=== PATIENT | male | born 1965 | race Caucasian/White ===

== ENCOUNTER 2021-12-24 19:55 | Emergency (ER) | payer SELFPAY ==
[2021-12-24 20:03] VITALS: RESP 16
--- NOTE | 2021-12-24 20:14 | ED ---
General Adult HPI - General Chief complaint: Dizziness Stated complaint: Hypertension Time Seen by Provider: 12/24/21 20:08 Source: patient, EMS Mode of arrival: EMS Limitations: no limitations - History of Present Illness Initial comments: Patient presents to the ED by ambulance for evaluation. Patient states that he has had intermittent episodes of dizziness for the past 2 days. Patient states that his dizziness has become worse today. Patient states that it feels like things are spinning at times. Patient states that his dizziness is worse with changes in position, turning his head from [id number] and ambulating. Patient denies having any medical conditions, but he also admits that he has not seen a physician in a long time. Patient denies having any pain, fever or chills, headache, focal numbness/weakness/neuro deficit, visual changes, speech difficulty, chest pain or pressure, dyspnea, cough or cold symptoms, palpitations, syncope, abdominal pain, nausea/vomiting/diarrhea, bloody or melanotic stool, dysuria or urinary symptoms, leg or calf swelling or pain, or any other symptoms or complaints. Patient states that he does not feel dizzy currently while laying still. - Related Data Previous Rx's Medication Instructions Recorded Meclizine HCl 25 mg PO TID PRN #10 tablet 12/24/21 Allergies Allergy/AdvReac Type Severity Reaction Status Date / Time No Known Allergies Allergy Verified 12/24/21 20:04 Review of Systems ROS Statement: Those systems with pertinent positive or pertinent negative responses have been documented in the HPI. ROS Other: All systems not noted in ROS Statement are negative. Past Medical History Past Medical History: No Reported History History of Any Multi-Drug Resistant Organisms: None Reported Past Surgical History: No Surgical Hx Reported Past Psychological History: No Psychological Hx Reported Smoking Status: Current every day smoker Past Alcohol Use History: None Reported Past Drug Use History: None Reported General Exam Limitations: no limitations General appearance: alert, in no apparent distress Head exam: Present: atraumatic, normocephalic Eye exam: Present: normal appearance, PERRL, EOMI. Absent: nystagmus ENT exam: Present: mucous membranes moist, TM's normal bilaterally Neck exam: Present: other (Trachea is in midline) Respiratory exam: Present: normal lung sounds bilaterally. Absent: respiratory distress, wheezes, rales, rhonchi, stridor Cardiovascular Exam: Present: regular rate, normal rhythm, normal heart sounds, other (Normal radial pulses bilaterally) GI/Abdominal exam: Present: soft. Absent: distended, tenderness, guarding Extremities exam: Absent: tenderness, pedal edema, calf tenderness Neurological exam: Present: alert, oriented X3, CN II-XII intact. Absent: motor sensory deficit Psychiatric exam: Present: normal affect, normal mood Skin exam: Present: warm, dry, intact, normal color Course Vital Signs 12/24/21 12/24/21 12/24/21 20:00 20:49 21:33 Temperature 98.5 F Pulse Rate 77 68 80 Respiratory 16 16 16 Rate Blood Pressure 162/132 190/110 156/90 O2 Sat by Pulse 95 98 98 Oximetry - Reevaluation(s) Reevaluation #1: 12/24/21 23:23 Patient's blood pressure has now improved to 156/90. Patient states that his dizziness has also improved, and patient has been ambulatory in the ED without difficulty. Patient and brother are aware the patient's test results, and patient feels comfortable being discharged home at this time. In particular, the patient was made aware of his CT finding of an old lacunar infarct. Patient was counseled about elevated blood pressure and dizziness/vertigo. Patient was instructed to, and agrees to, establish care and follow up closely with a primary care provider. Patient was clearly explained return and follow-up instructions, and he feels comfortable this plan. EKG Findings - EKG Comments: EKG Findings:: Normal sinus rhythm, ventricular rate of 72 bpm, no ectopy, normal CT and QRS intervals, normal QT interval, normal axis, no ST or T-wave abnormality Medical Decision Making - Medical Decision Making Patient's blood pressure has improved while in the ED, as has his dizziness. Patient's head CT shows no definite acute abnormality, but does demonstrate an old lacunar infarct. Patient's EKG and labs are fairly unremarkable other than leukocytosis, which I suspect is likely reactive, as the patient is afebrile and has no infectious signs/symptoms. Patient reports that his dizziness is worse with changes in position and when turning his head from [id number]. I suspect that his dizziness is likely due to positional vertigo. Patient reports that he does not have a primary care provider and he has not seen a doctor in a long time. Given his elevated blood pressure readings, I have explained to him that it is possible that he has underlying hypertension, and I have advised that he establish care with a primary care provider and follow up closely with him/her. Patient agrees to do so. Will discharge patient home with his brother at this time. Patient feels comfortable with this plan. - Lab Data Result diagrams: 12/24/21 20:26 12/24/21 20:26 Lab Results 12/24/21 12/24/21 12/24/21 Range/Units 20:26 20:26 20:26 WBC 18.4 H (3.8-10.6) k/uL RBC 5.20 (4.30-5.90) m/uL Hgb 16.3 (13.0-17.5) gm/dL Hct 46.9 (39.0-53.0) % MCV 90.3 (80.0-100.0) fL MCH 31.4 (25.0-35.0) pg MCHC 34.7 (31.0-37.0) g/dL RDW 12.3 (11.5-15.5) % Plt Count 357 (150-450) k/uL MPV 7.7 Neutrophils % 79 % Lymphocytes % 13 % Monocytes % 5 % Eosinophils % 3 % Basophils % 0 % Neutrophils # 14.4 H (1.3-7.7) k/uL Lymphocytes # 2.4 (1.0-4.8) k/uL Monocytes # 0.9 (0-1.0) k/uL Eosinophils # 0.5 (0-0.7) k/uL Basophils # 0.1 (0-0.2) k/uL Sodium 137 (137-145) mmol/L Potassium 4.4 (3.5-5.1) mmol/L Chloride 104 (98-107) mmol/L Carbon Dioxide 18 L (22-30) mmol/L Anion Gap 15 mmol/L BUN 18 (9-20) mg/dL Creatinine 0.84 (0.66-1.25) mg/dL Est GFR (CKD-EPI)AfAm >90 (>60 ml/min/1.73 sqM) Est GFR (CKD-EPI)NonAf >90 (>60 ml/min/1.73 sqM) Glucose 101 H (74-99) mg/dL Calcium 9.8 (8.4-10.2) mg/dL Total Bilirubin 0.4 (0.2-1.3) mg/dL AST 32 (17-59) U/L ALT 34 (4-49) U/L Alkaline Phosphatase 83 (38-126) U/L Troponin I <0.012 (0.000-0.034) ng/mL Total Protein 7.8 (6.3-8.2) g/dL Albumin 4.8 (3.5-5.0) g/dL Urine Color Urine Appearance (Clear) Urine pH (5.0-8.0) Ur Specific Stokes (1.001-1.035) Urine Protein (Negative) Urine Glucose (UA) (Negative) Urine Ketones (Negative) Urine Blood (Negative) Urine Nitrite (Negative) Urine Bilirubin (Negative) Urine Urobilinogen (<2.0) mg/dL Ur Leukocyte Esterase (Negative) 12/24/21 Range/Units 21:45 WBC (3.8-10.6) k/uL RBC (4.30-5.90) m/uL Hgb (13.0-17.5) gm/dL Hct (39.0-53.0) % MCV (80.0-100.0) fL MCH (25.0-35.0) pg MCHC (31.0-37.0) g/dL RDW (11.5-15.5) % Plt Count (150-450) k/uL MPV Neutrophils % % Lymphocytes % % Monocytes % % Eosinophils % % Basophils % % Neutrophils # (1.3-7.7) k/uL Lymphocytes # (1.0-4.8) k/uL Monocytes # (0-1.0) k/uL Eosinophils # (0-0.7) k/uL Basophils # (0-0.2) k/uL Sodium (137-145) mmol/L Potassium (3.5-5.1) mmol/L Chloride (98-107) mmol/L Carbon Dioxide (22-30) mmol/L Anion Gap mmol/L BUN (9-20) mg/dL Creatinine (0.66-1.25) mg/dL Est GFR (CKD-EPI)AfAm (>60 ml/min/1.73 sqM) Est GFR (CKD-EPI)NonAf (>60 ml/min/1.73 sqM) Glucose (74-99) mg/dL Calcium (8.4-10.2) mg/dL Total Bilirubin (0.2-1.3) mg/dL AST (17-59) U/L ALT (4-49) U/L Alkaline Phosphatase (38-126) U/L Troponin I (0.000-0.034) ng/mL Total Protein (6.3-8.2) g/dL Albumin (3.5-5.0) g/dL Urine Color Colorless Urine Appearance Clear (Clear) Urine pH 6.0 (5.0-8.0) Ur Specific Stokes 1.008 (1.001-1.035) Urine Protein Negative (Negative) Urine Glucose (UA) Negative (Negative) Urine Ketones Negative (Negative) Urine Blood Negative (Negative) Urine Nitrite Negative (Negative) Urine Bilirubin Negative (Negative) Urine Urobilinogen <2.0 (<2.0) mg/dL Ur Leukocyte Esterase Negative (Negative) - Radiology Data Noncontrast head CT: Lacunar infarct left internal capsule. This is likely old. No definite acute intracranial abnormality. Disposition Clinical Impression: Dizziness, Elevated blood pressure reading Disposition: HOME SELF-CARE Condition: Stable Instructions (If sedation given, give patient instructions): Vertigo (ED), Hypertension (ED), Dizziness (ED) Additional Instructions: Return to the ER immediately should you develop increased dizziness, fainting, numbness or weakness, any significant pain, a significant headache, chest pain, shortness of breath, vomiting, or new or worsening symptoms. Follow up closely with a primary care provider. Prescriptions: Meclizine HCl 25 mg PO TID PRN #10 tablet PRN Reason: Vertigo Is patient prescribed a controlled substance at d/c from ED?: No Referrals: None,Stated [Primary Care Provider] - 1-2 days Macario Vines DO [Doctor of Osteopathic Medicine] - 1-2 days Time of Disposition: 23:23
[2021-12-24] MEDS ORDERED: MECLIZINE 12.5 MG TAB PO STA (20:28)
[2021-12-24] MEDS ORDERED: LORazepam 2 MG/ML INJ IV STA (20:28)
[2021-12-24 20:52] LABS: Basophils # (A) 0.1 k/uL (0-0.2); Basophils % (A) 0 %; Eosinophils # (A) 0.5 k/uL (0-0.7); Eosinophils % (A) 3 %; HCT 46.9 % (39.0-53.0); HGB 16.3 gm/dL (13.0-17.5); Lymphocytes # (A) 2.4 k/uL (1.0-4.8); Lymphocytes % (A) 13 %; MCH 31.4 pg (25.0-35.0); MCHC 34.7 g/dL (31.0-37.0); MCV 90.3 fL (80.0-100.0); Mean Platelet Volume 7.7; Monocytes # (A) 0.9 k/uL (0-1.0); Monocytes % (A) 5 %; Neutrophils # (A) 14.4 k/uL (1.3-7.7); Neutrophils % (A) 79 %; Platelet Count 357 k/uL (150-450); RDW 12.3 % (11.5-15.5); WBC 18.4 k/uL (3.8-10.6)
[2021-12-24 21:11] LABS: ALT 34 U/L (4-49); AST 32 U/L (17-59); African American GFR (CKD) >90 (>60 ml/min/1.73 sqM); Albumin 4.8 g/dL (3.5-5.0); Alkaline Phosphatase 83 U/L (38-126); Anion Gap 15 mmol/L; Blood Urea Nitrogen 18 mg/dL (9-20); Calcium 9.8 mg/dL (8.4-10.2); Carbon Dioxide 18 mmol/L (22-30); Chloride 104 mmol/L (98-107); Glucose 101 mg/dL (74-99); Non-African American GFR(CKD) >90 (>60 ml/min/1.73 sqM); Potassium 4.4 mmol/L (3.5-5.1); Sodium 137 mmol/L (137-145); Total Bilirubin 0.4 mg/dL (0.2-1.3); Total Protein 7.8 g/dL (6.3-8.2)
[2021-12-24 22:12] LABS: Appearance,Urine Clear (Clear); Bilirubin,Urine Negative (Negative); Blood,Urine Negative (Negative); Color,Urine Colorless; Glucose,Urine (UA) Negative (Negative); Ketones,Urine Negative (Negative); Leukocyte Esterase,Urine Negative (Negative); Nitrite,Urine Negative (Negative); Protein,Urine Negative (Negative); Specific Gravity,Urine 1.008 (1.001-1.035); Urobilinogen,Urine <2.0 mg/dL (<2.0)
--- NOTE | 2021-12-24 22:26 | CT ---
EXAMINATION TYPE: CT brain wo con DATE OF EXAM: 12/24/2021 COMPARISON: None HISTORY: dizziness CT DLP: 1206.4 mGycm Automated exposure control for dose reduction was used. Ventricles have fairly normal size. There is no mass effect or midline shift. There is a 1.5 x 0.5 cm hypodensity anterior left internal capsule consistent with old lacunar infarct. No midline shift. No sign of intracranial hemorrhage. Calvarium is intact. The skull base is intact. There is normal aera tion of the mastoid sinuses. IMPRESSION: lacunar infarct left internal capsule. This is likely old. No definite acute intracranial abnormality ..
[2021-12-24 23:40] VITALS: BP 151/74; PULSE 71; TEMP 97.5
== END 2021-12-24 23:41 | disposition home or self-care (01) ==
LOC: EC 19:55
DX: R42 Dizziness and giddiness (principal); R03.0 Elevated blood-pressure reading, without diagnosis of hypertension; F17.200 Nicotine dependence, unspecified, uncomplicated
CPT/HCPCS: 36415; 93005; 80053; 84484; 85025; 81003; 70450; 99284; 96374; J2060